=== PATIENT | female | born 1945 | race Caucasian/White ===

== ENCOUNTER 2025-03-12 19:40 | Inpatient (IN) | payer MEDICARE, OTHER, SELFPAY ==
[2025-03-12] VITALS (8 sets, daily range): BP systolic 135–181; BP diastolic 58–88; BMI 17.7; BMI 16.9
--- NOTE | 2025-03-12 16:12 | ED.GENMED ---
History of Present Illness
General
Chief Complaint: Blood Pressure Problem
Time Seen by Provider: 03/12/25 15:19
History of Present Illness
History of Present Illness:
80-year-old female with history of COPD on 3 L O2 and hypertension presenting to the emergency department for elevated blood pressure and dyspnea. Patient arrives with daughter who notes for the past month she has been having issue with her blood
pressure going up. She had previously been on metoprolol which was increased, however then saw the clinical nutritionist last week who took her off this medication. She was switched to Nebivolol, benazepril, and blood pressure was very elevated. Patient
has also been having ongoing issues with dyspnea, particularly dyspnea on exertion. Daughter notes that her oxygen will be maintained, however patient gets very anxious with ambulation. Her primary care doctor recently started her on an
antidepressant medication, however she has not initiated it yet. Denies any new cough or increased oxygen requirements. Denies fever. Denies associated chest pain. Reports that cardiology recently did an echo, within normal limits. She has seen
a director loss prevention through [place], however does not feel like she is getting answers to her issues. No additional history or symptoms reported at this time
Phy Exam
Physical Exam
Physical Exam:
General: Well-appearing, no clinical signs of dehydration, nontoxic and in no acute distress
HEENT: protecting airway
Neck: appears supple
CV: Normal heart rate, regular rhythm
Resp: No accessory muscle use, no increased work of breathing, diminished air movement bilaterally
Abd: No distention
Extremities: No deformities, no swelling
Neuro: alert, no focal neurologic deficit
: deferred
Rectal: deferred
Psych: Normal affect
Skin: Intact
Course
Orders/Labs/Results
Orders:
Orders
03/12/25 15:35
Electrocardiogram (*1) Urgent
Reason for Study: Chest Pain
EKG- Treatment ONCE
03/12/25 15:50
CR Chest - 2 Views Urgent
Comment:
Reason For Exam: sob
03/12/25 16:03
Complete Blood Count/With Diff Urgent
Comprehensive Metabolic Panel Urgent
NT-proBNP Urgent
Troponin I Urgent
Venous Blood Gas Urgent
%Oxygen/Room Air: 30
03/12/25 17:14
Ipratropium/Albuterol Sulfate [Duoneb] 3 ml INH R NOW ONE
MethylPREDNISolone PF [Solu-Medrol Pf] 125 mg IV NOW STA
Abnormal Lab Results
03/12/25
16:03
RBC 3.70 L 10^6/uL
(4.20-5.40)
Hgb 11.4 L g/dL
(12.0-16.0)
Hct 36.3 L %
(37.0-47.0)
MCHC 31.4 L g/dL
(33.0-37.0)
Absolute Monos (auto) 0.7 H 10^3/uL
(0.1-0.6)
Lymphocytes % 15.1 L %
(20.5-51.1)
VBG pCO2 74 H* mmHg
(35-48)
VBG HCO3 43.8 H mmol/L
(22-27)
Sodium 132 L mmol/L
(135-145)
Chloride 90 L mmol/L
(98-107)
Carbon Dioxide 39 H mmol/L
(22-30)
BUN 48 H mg/dl
(7-17)
Glucose 100 H mg/dl
(70-99)
03/12/25 16:03
03/12/25 16:03
Vital Signs
Initial and Last Documented VS:
Initial Vital Signs
Temp Pulse Resp BP Pulse Ox
98.2 F 83 16 160/83 97
03/12/25 14:44 03/12/25 14:44 03/12/25 14:44 03/12/25 14:44 03/12/25 14:44
Last Documented Vital Signs
Temp Pulse Resp BP Pulse Ox
98.2 F 80 22 153/75 95
03/12/25 15:33 03/12/25 17:15 03/12/25 17:15 03/12/25 17:00 03/12/25 17:15
MDM/Problems Addressed
MDM/Problems Addressed:
80-year-old female with history of COPD on 3 L and hypertension presenting for elevated blood pressure and dyspnea. Vital signs significant for high blood pressure.
On exam patient is resting comfortably, no acute distress. No increased work of breathing. Diminished air movement bilaterally, however consistent with known severe COPD. No focal abnormal lung sounds. Patient's respiratory standpoint, daughter
is mostly concerned about patient's dyspnea with exertion, which has been an ongoing issue. She suspects that there is an anxiety component to it, which they are very well may be. No signs of volume overload on exam, recent normal echo which
daughter was able to pull up on her phone from outside facility. Without concern for CHF component. Patient denies any chest pain. EKG without acute ischemic abnormality. Without present concern for ACS. Do suspect the patient symptoms are from
end-stage COPD, chronic. Patient does not appear to be in any sort of acute exacerbation of her COPD. Daughter notes history of retained CO2. Will screen with laboratory analysis and chest x-ray imaging. She is not currently on BiPAP at night,
however do feel this could be a reasonable solution going forward and consultation with her director loss prevention. Regarding her blood pressure, also ongoing issue. Recent medication adjustment 4 days ago. Blood pressure here is elevated, however without
present concern for hypertensive urgency or emergency. Will hold on adjusting any of patient's medications given recent adjustment. Will continue to monitor
17:50 - Patient's labs show hypercapnia, however suspected to be somewhat chronic. Labs relatively otherwise unremarkable. Chest x-ray shows signs of COPD, no signs of volume overload. Patient ambulated, initially did well, however then started
to hyperventilate and became hypoxic. Continue to suspect that patient symptoms are from severe COPD, acute on chronic. Will start patient on steroids and breathing treatment. Given patient's inability to ambulate without hypoxia, will admit for
COPD exacerbation with likely pulmonology consultation, possible evaluate for home CPAP use
*Pulse Oximetry
SaO2: 93
Nasal Cannula flow liters per minute: 3
Patient hypoxic: no
*EKG
Interpreted by ED Provider?: Yes
EKG Intrepretation Date: 03/12/25
EKG Intrepretation Time: 16:18
Interpretation: normal
Heart Rate: 79
Rate: normal
Rhythm: sinus
[place]: normal axis
Interval: normal interval
QRS Pattern: normal QRS
Ischemia: no ischemia
*Critical Care Note
Total Time (30-74mins, 75-104mins- exclusive of procedures): Not Applicable
ED Attending Note
-
Portions of this chart may have been created with voice recognition software.� Occasional wrong word or��sound alike� substitutions may have occurred due to the inherent limitations of voice recognition software.
Discharge Plan
Departure
Prescriptions:
No Action
budesonide 0.5 mg/2 mL Suspension For Nebulization
0.5 mg INHALATION BID
benazepril 20 mg Tablet
20 mg PO BID
ipratropium-albuterol 0.5 mg-3 mg(2.5 mg base)/3 mL Solution For Nebulization
3 ml INHALATION QID PRN (Reason: shortness of breath)
arformoterol 15 mcg/2 mL Solution For Nebulization
2 ml INHALATION BID
Yupelri 175 mcg/3 mL Solution For Nebulization
175 mcg INHALATION DAILY
Ohtuvayre 3 mg/2.5 mL Suspension For Nebulization
2.5 ml INHALATION QAM AND QPM
nebivolol 10 mg Tablet
10 mg PO DAILY
Referrals:
Rico Flannery DO [Family Provider, Family Practice]
Interventions
Interventions:
*Risk Screen - Suicide Last Done: 03/12/25 14:44
*General Assessment Last Done: 03/12/25 15:32
*Neglect/Abuse Screening Last Done: 03/12/25 14:44
*ED- Fall Risk Assessment Last Done: 03/12/25 15:32
*ED COVID-19 Vaccine History Last Done: 03/12/25 15:32
*ED Influenza Vaccine History Last Done: 03/12/25 15:32
ED- Cardiac Assessment Last Done: 03/12/25 15:35
ED- Neurological Assessment Last Done: 03/12/25 15:35
ED- Pulmonary Assessment Last Done: 03/12/25 15:35
Discharge Date and Time
Print Language: PUERTO RICAN
[2025-03-12 16:13] LABS: Venous Blood Gas B.E. 15.4 mmol/L (-4 to +4); Venous Blood Gas O2 Sat % 79.2 %
[2025-03-12 16:14] LABS: Hematocrit 36.3 % (37.0-47.0); Hemoglobin 11.4 g/dL (12.0-16.0); Mean Corp Hgb Conc. 31.4 g/dL (33.0-37.0); Mean Corpuscular Volume 98.1 fL (81.0-99.0); Nucleated Red Blood Cells % 0 %; Platelet Count 269 10^3/uL (130-400); Red Cell Dist. Width 13.0 % (11.5-14.5)
[2025-03-12 16:30] LABS: ALT (SGPT) 29 U/L (0-35); AST (SGOT) 35 U/L (14-36); Albumin 3.9 g/dl (3.5-5.0); Alkaline Phosphatase 101 U/L (38-126); Blood Urea Nitrogen 48 mg/dl (7-17); Calcium 10.0 mg/dl (8.4-10.2); Chloride 90 mmol/L (98-107); Estimated Creatinine Clearance 31 ml/min; Glucose 100 mg/dl (70-99); Potassium 5.0 mmol/L (3.5-5.1); Sodium 132 mmol/L (135-145); Total Protein 6.8 g/dl (6.3-8.2); eGFR > 60.00
[2025-03-12 16:42] LABS: Troponin I 0.024 ng/ml
[2025-03-12 17:00] LABS: Carbon Dioxide 39 mmol/L (22-30)
--- NOTE | 2025-03-12 17:17 | EDRN ---
the pt ambulated to the bathroom. With ambulation, the pt became short of breath and was noted to be hypoxic with oxygen saturation decreased to 88% while on 2-3L NC Oxygen. ER Dr Vidal was notified of above
[2025-03-12] MEDS: DUONEB 3 ML INH ×2 (17:24→21:17)
[2025-03-12] MEDS: SOLU-MEDROL PF 125 MG IV (17:30)
--- NOTE | 2025-03-12 17:53 | HPS.HSE ---
Addendum entered and electronically signed by Sherif Randall DO 03/12/25 18:52:
Patient seen and examined independently. Agree with findings and plan as set forth by SUDHAKAR Noel.
Patient is an 80y F with [facility] significant for COPD with chronic hypoxemia who presents to ED complaining of SOB and high BP. Patient reports dyspnea with exertion that has been persistent / progressive x months. She is followed by Dr. Infante at
[facility] and is in a study at this time. Patient denies any acute cough, fevers / chills, etc. Patient and family are interested in any treatments / interventions that may improve her symptoms / quality of life and are happy to exit the [facility] study if
need be.
Ass:
COPD
Chronic Hypoxemic and Hypercapnic Respiratory Failure
Benign Hypertension
Plan:
Admit for further evaluation and treatment.
IV dose of steroids given in the ED. Continue prednisone 40mg daily for now.
Continue inhaled budesonide. Duonebs TID and albuterol PRN.
Pulmonary evaluation for additional recommendations.
May benefit from NIPPV - but would likely need to discuss with / inform Pulm at [facility] for changes in her current treatment plan given study enrollment.
Continue benazepril and titrate BP meds as needed for adequate control.
Original Note:
Family Physician
-
Family Physician: Rico Flanenry
Chief Complaint
-
exertional dyspnea and hypertension
History of Present Illness
Patient is a 80-year-old female with past medical history significant for hypertension and COPD who presented to [facility] ED for evaluation of exertional dyspnea and hypertension. Patient reports that exertionally dyspnea has been present for a long
time and defines as many months. She reports hypertension has also been high for sometime and recently saw Window Installer, Dr. Luis Fu @ [facility] who made medication changes. She also, reports seeing Wildlife Veterinarian Dr. Terrance Infante @
[place] [facility] and is currently enrolled in study regarding BiPap per daughter. Denies any recent fever, chills, cough, chest pain, nausea, vomiting, constipation, diarrhea or urinary symptoms.
Medical History
Past Medical History
Past Medical History: Reports Other
Additional Past Medical History:
hypertension
COPD
macular degeneration
Past Surgical History: Reports None
Social History
Tobacco: Former Smoker (40 pack year history, quit approximately 10 years ago )
Alcohol: None
Drug: None
Personal:
Living: With Family
Employment: Retired
Family History
Family History: Other (Mother: breast cancer )
Allergies / Home Medications
Allergies reflects when Allergies were last updated in [facility].
Home Medications with original date entered in [facility]
Allergy/Medication List:
Allergies
Allergy/AdvReac Type Severity Reaction Status Date / Time
Penicillins Allergy Unknown Verified 03/12/25 15:30
Home Medications
arformoterol 15 mcg/2 mL solution for nebulization 2 ml inhalation BID 03/12/25
benazepril 20 mg tablet 20 mg PO BID 03/12/25
budesonide 0.5 mg/2 mL suspension for nebulization 0.5 mg inhalation BID 03/12/25
ensifentrine 3 mg/2.5 mL suspension for nebulization (Ohtuvayre) 2.5 ml inhalation QAM AND QPM 03/12/25
ipratropium 0.5 mg-albuterol 3 mg (2.5 mg base)/3 mL nebulization soln 3 ml inhalation QID PRN shortness of breath 03/12/25
nebivolol 10 mg tablet 10 mg PO DAILY 03/12/25
revefenacin 175 mcg/3 mL solution for nebulization (Yupelri) 175 mcg inhalation DAILY 03/12/25
Review of Systems
-
History Source: Patient
Constitutional: Denies Fever or Chills
EENT: Denies Sore Throat
Respiratory: Reports Trouble Breathing (exertional dyspnea ); Denies Cough or Hemoptysis
Cardiac: Denies Chest Pain, Diaphoresis, Palpitations or Syncope
Abdomen/GI: Denies Abdominal Pain, Nausea, Vomiting or Diarrhea
: Denies Dysuria, Frequency or Urgency
Musculoskeletal: Denies Joint Pain
Skin: Denies Rash
Neurological: Denies Dizzy, Headache, Weakness or Numbness
Endocrine: Denies Polyuria
Physical Exam
Vital Signs
Vital Signs
Temp Pulse Resp BP Pulse Ox
98.2 F 80 22 153/75 95
03/12/25 15:33 03/12/25 17:15 03/12/25 17:15 03/12/25 17:00 03/12/25 17:15
Physical Exam
General: Well Developed, Well Nourished, No Apparent Distress, Comfortable, Conversant and Appears Chronically Ill
HEENT: NormoCephalic, Moist mucous membranes, PERRLA, Nose Appears Normal and Ears Appear Normal
Respiratory: Clear, Non Labored Respirations and Decreased Breath Sounds; No Wheezes, Rales or Rhonchi
Cardiac: Regular Rhythm; No Murmur, Rub, Gallop or Peripheral Edema
GI: Soft, Non Tender, Non Distended and Normal Bowel Sounds
Musculoskeletal: No Clubbing, No Cyanosis and No Edema
Skin: Warm and IV/Catheter Site
Neuro: Awake and AO x 3
Psych: Calm and Intact Judgment/Insight
Laboratory Results
-
03/12/25 16:03
03/12/25 16:03
Laboratory Results
Total Bilirubin 0.2 mg/dl (0.2-1.3) 03/12/25 16:03
AST 35 U/L (14-36) 03/12/25 16:03
ALT 29 U/L (0-35) 03/12/25 16:03
Alkaline Phosphatase 101 U/L (38-126) 03/12/25 16:03
Troponin I 0.024 ng/ml 03/12/25 16:03
Data Reviewed
-
Lab Data: Labs Reviewed by me (VBG pCO2 74, Na+ 132, CO2 39, BUN 48)
Impression/Plan
-
IMPRESSION/PLAN:
#COPD exacerbation
c/o exertional dyspnea for months
VBG pCO2 74, Na+ 132, CO2 39, BUN 48
EKG: NORMAL SINUS RHYTHM
CXR: No acute disease of the chest.
Probable T12 mild compression fracture.
Findings suggesting severe COPD.
Severe atherosclerotic vascular disease.
- Admit to med/surg
- Consult Pulmonary
- Prednisone 40mg daily
- DuoNeb TID and Albuterol PRN
- continue budesonide
#hypertension
- continue benazepril and nebivolol
Code status: full code
DVT prophylaxis: lovenox sq
[2025-03-12] MEDS: PULMICORT 0.5 MG INH (21:17)
[2025-03-13 07:16] VITALS: BP 131/73
[2025-03-13] MEDS: PULMICORT 0.5 MG INH ×2 (07:28→20:10)
[2025-03-13] MEDS: DUONEB 3 ML INH ×3 (07:28→20:10)
[2025-03-13 08:04] LABS: Hematocrit 35.8 % (37.0-47.0); Hemoglobin 11.4 g/dL (12.0-16.0); Mean Corp Hgb Conc. 31.8 g/dL (33.0-37.0); Mean Corpuscular Volume 95.0 fL (81.0-99.0); Nucleated Red Blood Cells % 0 %; Platelet Count 268 10^3/uL (130-400); Red Cell Dist. Width 13.1 % (11.5-14.5)
[2025-03-13] MEDS: LOPRESSOR 50 MG PO ×2 (08:29→20:38)
[2025-03-13] MEDS: DELTASONE 40 MG PO (08:29)
[2025-03-13] MEDS: ZESTRIL 20 MG PO (08:30)
[2025-03-13 08:36] LABS: Blood Urea Nitrogen 39 mg/dl (7-17); Calcium 9.6 mg/dl (8.4-10.2); Carbon Dioxide 36 mmol/L (22-30); Chloride 96 mmol/L (98-107); Estimated Creatinine Clearance 29 ml/min; Glucose 124 mg/dl (70-99); Potassium 5.3 mmol/L (3.5-5.1); Sodium 135 mmol/L (135-145); eGFR > 60.00
--- NOTE | 2025-03-13 09:18 | CON.PUL ---
Consultation
Consultation Request
Date/Time Consultation Requested: 03/13/2025-8 AM
Date/Time Consultation Performed: 03/13/2025-11:30 AM
Requesting Provider: hospitalist
Performing Provider: Dr. Nix
Reason for Consultation: Shortness of breath
Medical History
-
Chief Complaint: Shortness of breath
History of Present Illness:
80-year-old former smoking female with underlying COPD, hypertension, macular degeneration presented to the emergency room with increasing shortness of breath and felt to have COPD exacerbation-pulmonary consulted for shortness of breath/COPD
exacerbation 03/13/2025. The patient feels improved since she came here. She denies any chest pain, chest tightness, chest congestion, productive cough, abdominal pain or leg swelling.
Past Medical History
Past Medical History: None (COPD on chronic 3 L of oxygen and nebulizers-followed Dr. Infante at [facility]-on protocol/BiPAP study. Hypertension. Macular degeneration.)
Social History
Tobacco: Former Smoker ([id number] quit 10 years ago)
Alcohol: None
Drug: None
Personal:
Living: With Family
Occupational Exposures: No known asbestos exposure
Environmental Exposures: No known tuberculosis exposure
Family History
Family History: Reviewed & Not Pertinent
Allergies / Home Medications
Allergies
Allergy/AdvReac Type Severity Reaction Status Date / Time
Penicillins Allergy Unknown Verified 03/12/25 15:30
Home Medications
�Medication �Instructions �Recorded �Confirmed �Last Taken �Type
arformoterol 15 mcg/2 mL solution 2 ml inhalation BID copd 03/12/25 03/12/25 03/12/25 History
for nebulization
benazepril 20 mg tablet 20 mg PO BID Blood Pressure 03/12/25 03/12/25 03/12/25 History
budesonide 0.5 mg/2 mL suspension 0.5 mg inhalation BID 03/12/25 03/12/25 03/12/25 History
for nebulization Lung/Breathing Issues
ensifentrine 3 mg/2.5 mL 2.5 ml inhalation QAM AND QPM COPD 03/12/25 03/12/25 03/12/25 History
suspension for nebulization
(Ohtuvayre)
ipratropium 0.5 mg-albuterol 3 mg 3 ml inhalation QID PRN shortness 03/12/25 03/12/25 03/12/25 History
(2.5 mg base)/3 mL nebulization of breath
soln
nebivolol 10 mg tablet (Bystolic) 10 mg PO BID AT 0800,1700 Blood 03/12/25 03/12/25 03/12/25 08:00 History
Pressure
revefenacin 175 mcg/3 mL solution 175 mcg inhalation DAILY COPD 03/12/25 03/12/25 03/11/25 History
for nebulization (Yupelri)
Review of Systems
-
Unable to Obtain full review of systems at this time due to: Other ( per HPI)
Vitals / Labs / Diagnostic Testing
Vital Signs
Temp Pulse Resp BP Pulse Ox
98 F 70 14 131/73 95
03/13/25 07:16 03/13/25 08:30 03/13/25 07:34 03/13/25 08:30 03/13/25 07:34
Lab Data
03/13/25 07:26
03/13/25 07:26
Diagnostic Testing:
Physical Exam
-
Exam:
Well-nourished and well-developed in no apparent distress
HEENT-atraumatic, normocephalic
Neck-supple, no JVD, no bruit
Heart-regular rate and rhythm-no murmurs, rubs or gallops
Chest with diminished breath sounds, prolonged expiratory time, no wheezes or crackles
Back-no tenderness
Abdomen-soft, nontender, nondistended, no hepatosplenomegaly
Extremities-no cyanosis, clubbing, trace lower extremity edema
Integument-intact, no rashes, lesions or ecchymosis
Neurology-alert and oriented, nonfocal motor and sensory exam
Assessment
-
80-year-old former smoking female with underlying COPD, hypertension, macular degeneration presented to the emergency room with increasing shortness of breath and felt to have COPD exacerbation-pulmonary consulted for shortness of breath/COPD
exacerbation 03/13/2025.
COPD exacerbation
Mild [id number] 11.4
Mild hyperglycemia
Conditions present prior to admission:
COPD on chronic 3 L of oxygen and nebulizers-followed Dr. Infante at [facility]-on protocol/BiPAP study.
Hypertension.
Macular degeneration.
Plan
Respiratory decompensation likely due to a COPD exacerbation without clear infectious prodrome
Supplemental oxygen-attempt to wean-patient on 3 L at home
Aspiration precautions
Nebulizers
Prednisone 40 mg with taper
No signs of infection
Observe off antibiotics
Monitor blood sugar
Insulin supplementation as needed
DVT prophylaxis-on Lovenox
Nutrition
Early mobilization
Outpatient follow-up with Dr. Infante and if she wishes locally as well-Will leave information and discharge paperwork
Diagnostic data:
Chest x-ray 03/12/2025-NAD, COPD changes, T12 mild compression fracture
Data Reviewed
-
EKG: Report reviewed by me
Radiology: Report reviewed by me
Medical Tests (Nuc Med, Echo etc): Report reviewed by me
Labs: Labs reviewed by me
Old Records: Reviewed
Total Time Spent with Patient (in minutes): 55
--- NOTE | 2025-03-13 16:02 | CM ---
Addendum entered by Halie Girard 03/13/25 16:08:
IA completed. IMM reviewed with pt and placed on chart. Pt lives with her in a 2 story house with 2 steps at the entrance. There are 13 steps to the 2nd floor.with a full BR on the first floor. NO hx of SNF. No insecurities identified.
Confirmed PCP, Rx, insurance
No hx of home care but pt is willing to accept this service. She will need a VN consult to case management.
Needs assistance bathing and dressing. This currently being done by her dtr.
Using 3 lpm n/c. Has a concentrator at home, and a portable tank. Stated she has been using the nebulizer 10x/day at home without improvement in her breathing. O2 DME company is [employer].
A rolling walker has been purchased and is at her home now. Use a wheelchaire outside of the home.
PCP: Rico Flannery
Rx: [facility]
Discharged for today has be cx per Dr. Newby
Plan: DC to home with VN(once CM referral is received)
Original Note:
Discharge order placed for this patient. Pt became very upset and said she does not feel well enough to go home yet. I reviewed the IMM with her. I spoke to her dtr who is equally upset, and crying and wants to speak to Dr. Newby about the pulmonary
consult. TT dr. Newby. RN made aware.
Plan: Pending Dr. Newby's review of pt's current complaint.
--- NOTE | 2025-03-13 16:15 | PTCARENOTE ---
Patient dyspneic and tachypneic when ambulating 10 feet to bathroom or just pushing herself up in bed. 3L NC 84% with exertion, RR 26-30. Patient recovers after 5 minutes, 3L 93%. Patient states, 'This is new for me. My breathing is getting worse.'
[2025-03-13 16:44] VITALS: BMI 16.9
--- NOTE | 2025-03-13 17:08 | W.PN.HOSP.TC ---
Today's Communication/Plan
-
Prednisone
BiPAP
Assessment / Plan
Assessment / Plan
80F with COPD on chronic home O2, HTN, P/W dyspnea, found to have worsening hypoxia with ambulation.
COPD exacerbation
Appears to have progressive worsening of her COPD
In ED apparently found to have hypoxia when she ambulated
Continue home O2, check ambulatory pulse ox
Consulted pulmonology, starting BiPAP tonight
Received IV steroids in the ED, continued 40 mg prednisone daily.
Continue nebs
Outpatient will be evaluated for advanced therapies
HTN
BP controlled, continue ACEIi and BB
Anxiety
Patient has been prescribed on buspirone as outpatient, has not started the medicine yet, daughter reports that division roadmaster is okay with her starting it. Per their home prescription she is to do 5 mg daily for 5 days, then increase to 5 mg twice
daily.
Start buspirone
As needed Xanax for panic attacks while here inpatient
DVT PPx
Lovenox
Anticipated Discharge: 24 - 48 hours
Subjective/Interval History
-
Date of Service: March 13, 2025
Patient reports gets short of breath when she walks. Called daughter twice to discuss plan of care, she is concerned about patient's ambulatory hypoxia, as well as progression of her COPD, reports that she does not respond to steroids. Also that
she develops anxiety that seems to contribute to her shortness of breath, she asks about Xanax, also notes that patient supposed to be on buspirone. Initially had plan to discharge patient today, however concerned that she has not yet had
improvement. Discussed case with Dr. Ponce as well, he can continue to follow her as outpatient as well, he will start BiPAP tonight.
Objective Data
-
Labs:
Laboratory Results
03/13/25
07:26
WBC 7.6
Hgb 11.4 L
Hct 35.8 L
Plt Count 268
Sodium 135
Potassium 5.3 H
Chloride 96 L
Carbon Dioxide 36 H
BUN 39 H
Creatinine 0.9
Glucose 124 H
Calcium 9.6
Vital Signs:
Vital Signs
Temp Pulse Resp BP Pulse Ox
97.9 F 82 14 131/73 98
03/13/25 15:13 03/13/25 15:13 03/13/25 15:13 03/13/25 08:30 03/13/25 15:13
I&O
03/12/25 03/13/25 03/14/25
06:59 06:59 06:59
Intake Total 280 / 280
Output Total 300 / 300
Balance -20 / -20
Review of Systems
-
All other systems: Reviewed and negative
Physical Exam
-
General: Comfortable and Cachectic
HEENT: Moist Mucous Membranes, Anicteric and PERRLA
Respiratory: Clear to Auscultation and Decreased Breath Sounds; Negative Wheezes, Rales or Rhonchi
Cardiac: Regular Rhythm and S1/S2; Negative Murmur, Rub or Gallop
GI: Soft, Nontender, Nondistended and Normal Bowel Sounds
Musculoskeletal: No Edema
Skin: Warm and Dry; Negative Rash, Ulcers or Lesions
Neuro: Awake and AO x 3
Hematologic / Lymphatic: No Lymphadenopathy
Psych: Calm
Data Reviewed
-
Diagnostic Radiology: Report Reviewed by me, Discussed with Physician, Discussed with Patient and Discussed with Family
Labs: Labs Reviewed by me, Discussed with Physician, Discussed with Patient and Discussed with Family
[2025-03-13] MEDS: LOVENOX 40 MG SC (18:00)
[2025-03-13] MEDS: PREVNAR 20 0.5 ML IM (18:04)
[2025-03-13] MEDS: XANAX 0.25 MG PO (20:40)
[2025-03-13 23:24] VITALS: BP 145/70
[2025-03-14 07:00] VITALS: BP 152/78
[2025-03-14] MEDS: PULMICORT 0.5 MG INH ×2 (07:47→19:49)
[2025-03-14] MEDS: DUONEB 3 ML INH ×3 (07:47→19:49)
--- NOTE | 2025-03-14 08:48 | W.PN.HOSP.TC ---
Today's Communication/Plan
-
Continue prednisone
Adjust BiPAP/mask for comfort
Assessment / Plan
Assessment / Plan
80F with COPD on chronic home O2, HTN, P/W dyspnea, found to have worsening hypoxia with ambulation.
COPD exacerbation
Appears to have progressive worsening of her COPD
In ED apparently found to have hypoxia when she ambulated
Continue home O2 3L, checked ambulatory pulse ox, 88% on RA at rest, 93% ambulating with 3 L
Consulted pulmonology, started BiPAP, only wore it for 2 minutes, adjust for comfort, if possible change to smaller mask
Received IV steroids in the ED, continued 40 mg prednisone daily.
Continue nebs
Outpatient will be evaluated for advanced therapies
HTN
BP controlled, continue ACEi and BB
Anxiety
Patient has been prescribed on buspirone as outpatient, has not started the medicine yet, daughter reports that cyber security analyst is okay with her starting it. Per their home prescription she is to do 5 mg daily for 5 days, then increase to 5 mg twice
daily.
Start buspirone
As needed Xanax for panic attacks while here inpatient, she took 1 but it did not help, will discontinue
DVT PPx
Lovenox
Anticipated Discharge: 24 - 48 hours
Subjective/Interval History
-
Date of Service: March 14, 2025
Patient still feeling dyspneic on exertion, notes she was unable to tolerate BiPAP last night because the mask was too big and the air was blowing into her eyes
Objective Data
-
Labs:
Laboratory Results
03/13/25
07:26
WBC 7.6
Hgb 11.4 L
Hct 35.8 L
Plt Count 268
Sodium 135
Potassium 5.3 H
Chloride 96 L
Carbon Dioxide 36 H
BUN 39 H
Creatinine 0.9
Glucose 124 H
Calcium 9.6
Vital Signs:
Vital Signs
Temp Pulse Resp BP Pulse Ox
98.1 F 78 18 152/78 97
03/14/25 07:00 03/14/25 07:50 03/14/25 07:50 03/14/25 07:00 03/14/25 07:50
I&O
03/13/25 03/14/25 03/15/25
06:59 06:59 06:59
Intake Total 280 / 280 1583 / 1583
Output Total 300 / 300 350 / 350
Balance -20 / -20 1233 / 1233
Review of Systems
-
All other systems: Reviewed and negative
Physical Exam
-
General: Comfortable and Cachectic
HEENT: Moist Mucous Membranes, Anicteric and PERRLA
Respiratory: Clear to Auscultation and Decreased Breath Sounds; Negative Wheezes, Rales or Rhonchi
Cardiac: Regular Rhythm and S1/S2; Negative Murmur, Rub or Gallop
GI: Soft, Nontender, Nondistended and Normal Bowel Sounds
Musculoskeletal: No Edema
Skin: Warm and Dry; Negative Rash, Ulcers or Lesions
Neuro: Awake and AO x 3
Hematologic / Lymphatic: No Lymphadenopathy
Psych: Calm
Data Reviewed
-
Diagnostic Radiology: Report Reviewed by me, Discussed with Physician, Discussed with Patient and Discussed with Family
Labs: Labs Reviewed by me, Discussed with Physician, Discussed with Patient and Discussed with Family
[2025-03-14] MEDS: BUSPAR 5 MG PO (08:51)
[2025-03-14] MEDS: DELTASONE 40 MG PO (08:51)
[2025-03-14] MEDS: ZESTRIL 20 MG PO (08:51)
[2025-03-14] MEDS: LOPRESSOR 50 MG PO ×2 (08:51→20:38)
--- NOTE | 2025-03-14 10:14 | CM ---
Addendum entered by Enriqueta Coppola 03/14/25 14:51:
Dr. Goodman spoke with patient and daughter; pt currently on O2 via HI; and will pursue outpatient initiation of BIPAP with Dr. Infante at [facility].
Patient to be discharged to home today. Pt's receives services through [facility] and a referral was sent to [facility] for patient to have services as well.
IMM reviewed and signed; copy placed in patient's chart.
[facility]
Original Note:
CM spoke with pt's daughter regarding discharge to home today. Daughter is concerned that patient was to be on bi-pap, however the mask was too big and patient is still having difficulty breathing. CM contacted the respiratory therapist, Octavia
Bing, who advised the smallest mask available was used, and suggested contacting the [employer] company who should have more sizes available. Respiratory Therapist was able to confirm that patient was given an Adult Small mask.
[2025-03-14 11:00] VITALS: BP 106/56
--- NOTE | 2025-03-14 12:59 | W.PN.PUL3 ---
Today's Communication / Plan
-
- Azithromycin 500 mg dailyf or 3 days
- Discharge planning
- BIPAP as needed, currently comfortable on nasal canula.
- Out patient follow up with Dr. Infante at [facility]. She can benefit from nightly initiation of BIPAP therapy, can be pursued as out patient.
Assessment
-
80-year-old former smoking female with underlying COPD, hypertension, macular degeneration presented to the emergency room with increasing shortness of breath and felt to have COPD exacerbation-pulmonary consulted for shortness of breath/COPD
exacerbation 03/13/2025.
Acute COPD exacerbation
Chronic hypoxic and hypercapnic respiratory failure, baseline on 3 L O2
Chronic compensated hypercapnia
Mild gjcybe-zavidagwod-eiqfvivmfr 11.4
Mild hyperglycemia
Conditions present prior to admission:
COPD on chronic 3 L of oxygen and nebulizers-followed Dr. Infante at [place]-on protocol/BiPAP study.
Hypertension.
Macular degeneration.
Plan
Respiratory decompensation likely due to a COPD exacerbation without clear infectious prodrome
Supplemental oxygen-attempt to wean-patient on 3 L at home
Aspiration precautions
Nebulizers
Prednisone 40 mg with taper
No infiltrates noted
Add 3 days of Azithromycin 500 mg nightly
Currently comfortable on room air, not needing BIPAP support. Compensated hypercapnia on VBG.
Monitor blood sugar
Insulin supplementation as needed
DVT prophylaxis-on Lovenox
Nutrition
Early mobilization
Outpatient follow-up with Dr. Infante and if she wishes locally as well-Will leave information and discharge paperwork
Diagnostic data:
Chest x-ray 03/12/2025-NAD, COPD changes, T12 mild compression fracture
Subjective Data
-
Date of Service:
Date of Service: March 14, 2025
Subjective:
Comfortably lying in bed, in no acute distress.
Review of Systems
Genitourinary: Other (No new symptoms reported. )
Objective Data
Data Reviewed
Vital Signs / I&O / Oxygen:
Vital Signs
Temp Pulse Resp BP Pulse Ox
98.2 F 66 20 106/56 96
03/14/25 11:00 03/14/25 11:00 03/14/25 11:00 03/14/25 11:00 03/14/25 11:00
Intake and Output
03/13/25 03/14/25 03/15/25
06:59 06:59 06:59
Intake Total 280 / 280 1583 / 1583
Output Total 300 / 300 350 / 350
Balance -20 / -20 1233 / 1233
SaO2 96
Nasal Cannula flow liters per 3
minute
Physical Exam
General: Comfortable
HEENT: Normocephalic
Cardiovascular: S1-S2
Respiratory: Clear and Other (Expiration prolonged, no wheezing )
GI: Soft
Neurology: Awake and Alert
Skin: Warm
Labs/Micro/Reports
Lab Data
03/13/25 07:26
03/13/25 07:26
[2025-03-14] MEDS: ZITHROMAX 500 MG PO (13:42)
[2025-03-14 14:53] VITALS: BP 148/79
[2025-03-14] MEDS: LOVENOX 40 MG SC (16:52)
[2025-03-14 19:52] VITALS: BP 157/70
[2025-03-14 23:30] VITALS: PULSE 2
[2025-03-14 23:43] VITALS: BP 149/78
[2025-03-15] VITALS (8 sets, daily range): BP systolic 142–165; BP diastolic 72–88; PULSE 2
[2025-03-15] MEDS: DUONEB 3 ML INH ×3 (07:32→19:51)
[2025-03-15] MEDS: PULMICORT 0.5 MG INH ×2 (07:32→19:51)
--- NOTE | 2025-03-15 08:23 | W.PN.HOSP.TC ---
Addendum entered and electronically signed by Adriane Newby MD 03/15/25 15:38:
Ana Davison requires noninvasive volume ventilation with a target tidal volume due to acute on chronic respiratory failure caused by COPD. Patient requires auto EPAP to prevent her airway from collapsing and battery backup in case of power
outages which exceeds the capability of a RAD. Patient is currently on NIV and will continue NIV therapy at home. Without NIV therapy, patient is at risk of elevated PaCO2 levels post discharge.
Original Note:
Today's Communication/Plan
-
Continue prednisone
Tolerated BiPAP
Discharge home with home BiPAP tomorrow
Assessment / Plan
Assessment / Plan
80F with COPD on chronic home O2, HTN, P/W dyspnea, found to have worsening hypoxia with ambulation.
COPD progression
Appears to have progressive worsening of her COPD
In ED apparently found to have hypoxia when she ambulated
Continue home O2 3L, checked ambulatory pulse ox, 88% on RA at rest, 93% ambulating with 3 L
Consulted pulmonology, started BiPAP, was able to tolerate last night. CM consult for home BiPAP.
Received IV steroids in the ED, continued prednisone daily, dosing adjustments per pulmonary.
Continue nebs
Outpatient will be evaluated for advanced therapies, will follow-up with local pulm
HTN
BP controlled, continue ACEi and BB
Anxiety
Patient has been prescribed on buspirone as outpatient, has not started the medicine yet, daughter reports that load manager is okay with her starting it. Per their home prescription she is to do 5 mg daily for 5 days, then increase to 5 mg twice
daily.
Start buspirone
As needed Xanax for panic attacks while here inpatient, she took 1 but it did not help, will discontinue
DVT PPx
Lovenox
Anticipated Discharge: Within 24 hours
Subjective/Interval History
-
Date of Service: March 15, 2025
Patient wore BiPAP overnight and feels some improvement with that.
Objective Data
-
Labs:
Laboratory Results
03/13/25
07:26
WBC 7.6
Hgb 11.4 L
Hct 35.8 L
Plt Count 268
Sodium 135
Potassium 5.3 H
Chloride 96 L
Carbon Dioxide 36 H
BUN 39 H
Creatinine 0.9
Glucose 124 H
Calcium 9.6
Vital Signs:
Vital Signs
Temp Pulse Resp BP Pulse Ox
98.7 F 78 16 165/82 99
03/15/25 07:00 03/15/25 07:34 03/15/25 07:34 03/15/25 07:00 03/15/25 07:34
I&O
03/14/25 03/15/25 03/16/25
06:59 06:59 06:59
Intake Total 1583 / 1583 660 / 660
Output Total 350 / 350
Balance 1233 / 1233 660 / 660
Review of Systems
-
All other systems: Reviewed and negative
Physical Exam
-
General: Comfortable and Cachectic
HEENT: Moist Mucous Membranes, Anicteric and PERRLA
Respiratory: Clear to Auscultation and Decreased Breath Sounds; Negative Wheezes, Rales or Rhonchi
Cardiac: Regular Rhythm and S1/S2; Negative Murmur, Rub or Gallop
GI: Soft, Nontender, Nondistended and Normal Bowel Sounds
Musculoskeletal: No Edema
Skin: Warm and Dry; Negative Rash, Ulcers or Lesions
Neuro: Awake and AO x 3
Hematologic / Lymphatic: No Lymphadenopathy
Psych: Calm
Data Reviewed
-
Diagnostic Radiology: Report Reviewed by me, Discussed with Physician, Discussed with Patient and Discussed with Family
Labs: Labs Reviewed by me, Discussed with Physician, Discussed with Patient and Discussed with Family
[2025-03-15] MEDS: ZITHROMAX 500 MG PO (09:23)
[2025-03-15] MEDS: LOPRESSOR 50 MG PO ×2 (09:24→20:17)
[2025-03-15] MEDS: FLUSH (NSS) 1 FLUSH IV (09:25)
[2025-03-15] MEDS: BUSPAR 5 MG PO (09:25)
[2025-03-15] MEDS: DELTASONE 40 MG PO (09:25)
[2025-03-15] MEDS: ZESTRIL 20 MG PO (09:25)
--- NOTE | 2025-03-15 11:31 | CM ---
Patient seen at bedside
spoke with daughter Leslie
tt from Dr. Goodman patient will need BIPAP at home
daughter ok with [employer]-CM called [employer] ([phone])
faxed face sheet, h&p, blood gas, progress notes
[facility] states they have to obtain authorization tomorrow
she will email CM additional info to be sent to [facility] states RT can go to patient home on Sunday
Discussed with daughter Leslie
Daughter also states wants [facility] not [facility] as patient is opened with [facility]
referral in [facility] for [facility] - CM left message for [facility] liaison
PLAN: home, with [facility], CM in process coordinating of BIPAP at home
--- NOTE | 2025-03-15 14:49 | W.PN.PUL3 ---
Today's Communication / Plan
-
- Lower prednisone to 30 mg daily
- Continue scheduled DuoNeb and budesonide. Resume patient's home nebulizers at discharge
- manager practice service consulted to help with nightly BiPAP initiation post discharge, tolerated 03/27 well with extra small mask
- Discharge planning
Assessment
-
80-year-old former smoking female with underlying COPD, hypertension, macular degeneration presented to the emergency room with increasing shortness of breath and felt to have COPD exacerbation-pulmonary consulted for shortness of breath/COPD
exacerbation 03/13/2025.
Acute COPD exacerbation
Chronic hypoxic and hypercapnic respiratory failure, baseline on 3 L O2
Chronic compensated hypercapnia ()
Mild mcgtkm-atxmbpnaov-oglqkemaez 11.4
Mild hyperglycemia
Pulmonary cachexia
Conditions present prior to admission:
COPD on chronic 3 L of oxygen and nebulizers-followed Dr. Infante at [place]-on protocol/BiPAP study.
Hypertension.
Macular degeneration.
Plan
Respiratory decompensation likely due to a mild COPD exacerbation without clear infectious prodrome
Most of her exertional dyspnea is due to end stage severe COPD. Patient follows up with Dr. Infante at [place], at baseline has been on a formoterol nebulizer along with budesonide, DuoNeb, Ohtuvayre and Yupleri. Essentially maximum medical
management. In view of chronic compensated hypercapnia, patient might benefit from nightly BiPAP initiation. Discussed with patient and her daughter, updated them regarding fairly advanced underlying obstructive disease with cachexia which I
suspect is pulmonary cachexia due to advanced COPD.
Spirometry 03/15, FEV1 20% (0.34L), FVC 55%, FEV1/FVC 29. Severe obstructive airway disease with possibly concomitant restriction with decreased FVC.
Supplemental oxygen-attempt to wean-patient on 3 L at home
Aspiration precautions
Nebulizers
Lowered prednisone to 30 mg daily
No infiltrates noted
Add 3 days of Azithromycin 500 mg nightly
Patient reports feeling better with use of BiPAP at night
Monitor blood sugar
Insulin supplementation as needed
DVT prophylaxis-on Lovenox
Nutrition
Early mobilization
Outpatient follow-up with Dr. Infante and if she wishes locally as well-Will leave information and discharge paperwork
Diagnostic data:
Chest x-ray 03/12/2025-NAD, COPD changes, T12 mild compression fracture
Subjective Data
-
Date of Service:
Date of Service: March 15, 2025
Subjective:
Comfortably lying in bed, reports feeling better after nightly BiPAP use.
Review of Systems
Genitourinary: Other (All 14 systems reviewed and negative except as stated above in the history of present illness.)
Objective Data
Data Reviewed
Vital Signs / I&O / Oxygen:
Vital Signs
Temp Pulse Resp BP Pulse Ox
98.7 F 82 24 158/80 96
03/15/25 07:00 03/15/25 12:15 03/15/25 11:15 03/15/25 12:15 03/15/25 11:15
Intake and Output
03/14/25 03/15/25 03/16/25
06:59 06:59 06:59
Intake Total 1583 / 1583 660 / 660 540 / 540
Output Total 350 / 350
Balance 1233 / 1233 660 / 660 540 / 540
SaO2 96
Nasal Cannula flow liters per 3
minute
Physical Exam
General: Comfortable and Other (Cachectic appearing)
HEENT: Normocephalic
Cardiovascular: S1-S2
Respiratory: Clear and Other (Expiration prolonged, no wheezing )
GI: Soft
Neurology: Awake and Alert
Skin: Warm
Labs/Micro/Reports
Lab Data
03/13/25 07:26
03/13/25 07:26
--- NOTE | 2025-03-15 16:00 | PTCARENOTE ---
Pt's SBP today has been 150s-160s, pt asymptomatic. Pt's daughter concerned that it is too high. Made Dr. Newby aware of daughter's concern. Dr. Newby indicated that she will look at pt's meds, will monitor.
[2025-03-15] MEDS: LOVENOX 40 MG SC (17:59)
[2025-03-16 03:30] VITALS: PULSE 2
[2025-03-16 07:00] VITALS: BP 198/94
[2025-03-16] MEDS: ZITHROMAX 500 MG PO (08:23)
[2025-03-16] MEDS: BUSPAR 5 MG PO (08:23)
[2025-03-16] MEDS: ZESTRIL 20 MG PO (08:24)
[2025-03-16] MEDS: DELTASONE 30 MG PO (08:24)
[2025-03-16] MEDS: LOPRESSOR 50 MG PO ×2 (08:24→20:28)
[2025-03-16] MEDS: PULMICORT 0.5 MG INH ×2 (08:41→19:39)
[2025-03-16] MEDS: DUONEB 3 ML INH ×3 (08:41→19:38)
--- NOTE | 2025-03-16 10:27 | W.PN.PUL3 ---
Today's Communication / Plan
-
Remains on baseline O2 requirements, prednisone taper
SOB with minimal exertion, not OOB--will obtain IS for bedside exercises
BIPAP set up per team
Discharge planning otherwise, FU OP with Dr Infante at [place]
Assessment
-
80-year-old former smoking female with underlying COPD, hypertension, macular degeneration presented to the emergency room with increasing shortness of breath and felt to have COPD exacerbation-pulmonary consulted for shortness of breath/COPD
exacerbation 03/13/2025.
Acute COPD exacerbation
Chronic hypoxic and hypercapnic respiratory failure, baseline on 3 L O2
Chronic compensated hypercapnia ()
Mild sobtnv-zzlwcryweg-ongjflkrbu 11.4
Mild hyperglycemia
Pulmonary cachexia
Conditions present prior to admission:
COPD on chronic 3 L of oxygen and nebulizers-followed Dr. Infante at [place]-on protocol/BiPAP study.
Hypertension.
Macular degeneration.
Plan
Respiratory decompensation likely due to a mild COPD exacerbation without clear infectious prodrome
Most of her exertional dyspnea is due to end stage severe COPD.
Patient follows up with Dr. Infante at [place], at baseline has been on a formoterol nebulizer along with budesonide, DuoNeb, Ohtuvayre and Yupleri.
Essentially maximum medical management.
In view of chronic compensated hypercapnia, patient might benefit from nightly BiPAP initiation.
Discussed with patient and her daughter, updated them regarding fairly advanced underlying obstructive disease with cachexia which I suspect is pulmonary cachexia due to advanced COPD.
Spirometry 03/15, FEV1 20% (0.34L), FVC 55%, FEV1/FVC 29. Severe obstructive airway disease with possibly concomitant restriction with decreased FVC.
Supplemental oxygen-on baseline-patient on 3 L at home
Aspiration precautions
Nebulizers
Lowered prednisone to 30 mg daily
No infiltrates noted
Add 3 days of Azithromycin 500 mg nightly
Patient reports feeling better with use of BiPAP at night
Monitor blood sugar
Insulin supplementation as needed
DVT prophylaxis-on Lovenox
Nutrition
Early mobilization
Outpatient follow-up with Dr. Infante and if she wishes locally as well-Will leave information and discharge paperwork
Discharge planning per team/awaiting home BIPAP set up
Diagnostic data:
Chest x-ray 03/12/2025-NAD, COPD changes, T12 mild compression fracture
Total time spent on this consultation/encounter __40__ minutes which includes review of history, physical exam, medications, laboratory data, personal review of imaging, extensive review of outpatient records, discussion with care team and
respiratory therapy.
Subjective Data
-
Date of Service:
Date of Service: March 16, 2025
Chief Complaint: Pulmonary Follow Up
Subjective:
Still SOB, not ambulating
No new complaints
Objective Data
Data Reviewed
Vital Signs / I&O / Oxygen:
Vital Signs
Temp Pulse Resp BP Pulse Ox
97.6 F 86 16 148/75 97
03/16/25 07:00 03/16/25 08:44 03/16/25 08:44 03/16/25 08:24 03/16/25 08:44
Intake and Output
03/15/25 03/16/25 03/17/25
06:59 06:59 06:59
Intake Total 660 / 660 900 / 900
Balance 660 / 660 900 / 900
SaO2 97
Nasal Cannula flow liters per 3
minute
Physical Exam
General: Comfortable and Other (Cachectic appearing)
HEENT: Normocephalic, Anicteric and Moist Mucous Membranes
Cardiovascular: S1-S2 and Regular Rhythm
Respiratory: Clear, Non-Labored Respirations and Other (Expiration prolonged, no wheezing )
GI: Soft, Non Distended and Non Tender
Neurology: Awake, Alert, Oriented and No Motor Deficits
Skin: Warm and Dry
Labs/Micro/Reports
Lab Data
03/13/25 07:26
03/13/25 07:26
--- NOTE | 2025-03-16 10:43 | CM ---
Addendum entered by Halie Girard 03/16/25 11:26:
IMM given and placed on chart
Addendum entered by Halie Girard 03/16/25 10:49:
Spoke with [facility] ([phone]) and informed her that pt is petite and may need a very small mask. She state she would notify the RT who is scheduled to see the patient tomorrow.
Original Note:
Met with dtr and pt bedside. Dtr is anticipating DC tomorrow.RT is ready to start on Sunday as well. Reassured pt and dtr that BiPap was included with respiratory order.
Plan: Possible Discharge to home tomorrow with nasal O2
--- NOTE | 2025-03-16 13:18 | W.PN.HOSP.TC ---
Today's Communication/Plan
-
expect discharge tomorrow once BiPAP set up
Assessment / Plan
Assessment / Plan
80F with COPD on chronic home O2, HTN, P/W dyspnea, found to have worsening hypoxia with ambulation.
COPD progression
Appears to have progressive worsening of her COPD
In ED apparently found to have hypoxia when she ambulated
Continue home O2 3L, checked ambulatory pulse ox, 88% on RA at rest, 93% ambulating with 3 L
Consulted pulmonology, started BiPAP, was able to tolerate last night. CM consult for home BiPAP - should be ready for tomorrow
continue prednisone taper
Continue nebs
Outpatient will be evaluated for advanced therapies, will follow-up with local pulm
plan for discharge tomorrow once BiPAP set up
HTN
BP controlled, continue ACEi and BB
Anxiety
Patient has been prescribed on buspirone as outpatient, has not started the medicine yet, daughter reports that teachers' aide is okay with her starting it. Per their home prescription she is to do 5 mg daily for 5 days, then increase to 5 mg twice
daily.
Start buspirone
As needed Xanax for panic attacks while here inpatient, she took 1 but it did not help, will discontinue
DVT PPx
Lovenox
Anticipated Discharge: 24 - 48 hours
Subjective/Interval History
-
Date of Service: March 16, 2025
breathing stable, still midlly short of breath
Objective Data
-
Vital Signs:
Vital Signs
Temp Pulse Resp BP Pulse Ox
97.6 F 86 16 148/75 98
03/16/25 07:00 03/16/25 08:44 03/16/25 08:44 03/16/25 08:24 03/16/25 11:20
I&O
03/15/25 03/16/25 03/17/25
06:59 06:59 06:59
Intake Total 660 / 660 900 / 900
Balance 660 / 660 900 / 900
Review of Systems
-
History Source: Patient
All other systems: Reviewed and negative
Physical Exam
-
General: No Apparent Distress
HEENT: PERRLA
Respiratory: Decreased Breath Sounds; Negative Wheezes
Cardiac: Regular Rhythm and S1/S2
GI: Soft and Nontender
Musculoskeletal: No Edema
Skin: Warm and Dry; Negative Rash
Neuro: AO x 3
Psych: Calm
Data Reviewed
-
Diagnostic Radiology: Report Reviewed by me
Labs: Labs Reviewed by me
[2025-03-16 15:00] VITALS: BP 158/72
--- NOTE | 2025-03-16 15:09 | W.DCSUMMARY ---
Discharge Summary
Discharge Data
Date of Admission: 03/12/25
Date of Discharge: 03/17/25
-
Pending Results: No
Hospital Course
Discharging Physician : Dr. Johnna Gaspar
Disposition : Home with Home Health
Primary care physician : Dr. Rico Flannery
Principal Discharge diagnosis : Acute COPD Exacerbation, severe COPD
Hospital Course :
Ms. Ana Davison is a 80 yo woman with hx severe COPD (FEV1 20%, FEV1/FVC 29) presents to the ER with shortness of breath. Triage vitals significant for hypertension, SpO2 97% on home 3L. CXR without finding of acute disease. She was admitted
to medicine with pulmonary consulting. She was given steroids and 3 days of Azithromycin 500mg. She had mild improvement, although there is concern that worsening symptoms are progression of end stage COPD. BiPAP qhs recommended and set up at
discharge. She is discharged on a steroid taper and will follow up closely with Pulmonary.
I spoke to patient's daughter, Pascale, about goals of care prior to discharge. She is interested in palliative care which will be arranged as outpatient.
Patient was hypertensive during hospital stay. Pascale given instructions on monitoring blood pressures 90 minutes after morning meds at home (once a day or if patient feels unwell) and reporting results to her outpatient providers.
Time spent on discharge was 32 minutes.
Important imaging findings :
CXR 03/12/25
IMPRESSION:
No acute disease of the chest.
Probable T12 mild compression fracture.
Findings suggesting severe COPD.
Severe atherosclerotic vascular disease.
Procedure findings :
Discharge Plan
-
Patient Disposition: Home (Routine Discharge)
Discharge Diagnosis/Procedures: COPD exacerbation
Diet: As tolerated
Activity: With assistance and As tolerated
Referrals:
Rico Flannery DO [Family Provider, [facility]] - in less than 1 week
Gilberto Nix MD [Active, Pulmonary Medicine] - in two to four weeks
Referral Note: If patient wants for local pulmonary follow-up
Additional Discharge Medication Instructions: follow up with Dr. Flannery, Dr. Rojo and Dr. Infante as outpatient
Start Benazepril tomorrow morning; OK to give this evening if systolic blood pressure is over 160
Use BiPAP in evenings as directed.
Spirometry was completed in the hospital showing FEV1 20% (0.34L), FVC 55%, FEV1/FVC 29; indicative of severe obstructive airway disease with possibly concomitant restriction with decreased FVC (PFT sheet printed out to be included with these
instructions)
Complete prednisone taper as prescribed
Prescriptions:
New
prednisone 10 mg tablet
10 mg PO DIRECTED Qty: 12 0RF
Rx Instructions:
Take 30mg (3 tabs) x 1 more day then 20mg (2 tabs) x 3 days then 10mg (1 tab) x 3 days
Continued
budesonide 0.5 mg/2 mL Suspension For Nebulization
0.5 mg INHALATION BID
benazepril 20 mg Tablet
20 mg PO BID
ipratropium-albuterol 0.5 mg-3 mg(2.5 mg base)/3 mL Solution For Nebulization
3 ml INHALATION QID PRN (Reason: shortness of breath)
arformoterol 15 mcg/2 mL Solution For Nebulization
2 ml INHALATION BID
Yupelri 175 mcg/3 mL Solution For Nebulization
175 mcg INHALATION DAILY
Ohtuvayre 3 mg/2.5 mL Suspension For Nebulization
2.5 ml INHALATION QAM AND QPM
nebivolol [Bystolic] 10 mg Tablet
10 mg PO BID AT 0800,1700
Discharge Orders:
Discharge Patient (As Directed); Ordered 03/17/25
Ordered By: Johnna Gaspar
Discharge Date and Time
Discharge Date/Time: 03/17/25 13:37
Print Language: GERMAN
[2025-03-16] MEDS: LOVENOX 40 MG SC (17:28)
[2025-03-16 20:03] VITALS: BP 179/86
[2025-03-16 23:38] VITALS: BP 149/80; PULSE 2; PULSE 73
[2025-03-17 02:40] VITALS: PULSE 2
[2025-03-17 07:00] VITALS: BP 178/89
[2025-03-17] MEDS: DELTASONE 30 MG PO (08:01)
[2025-03-17] MEDS: ZESTRIL 20 MG PO (08:01)
[2025-03-17] MEDS: BUSPAR 5 MG PO (08:01)
[2025-03-17] MEDS: LOPRESSOR 50 MG PO (08:02)
--- NOTE | 2025-03-17 09:43 | W.PN.PUL3 ---
Today's Communication / Plan
-
Doing well, no new complaints
Prednisone taper
Ready to go home, d/c planning per team
Encouraged OP FU at [facility] in 4-6 weeks
Assessment
-
80-year-old former smoking female with underlying COPD, hypertension, macular degeneration presented to the emergency room with increasing shortness of breath and felt to have COPD exacerbation-pulmonary consulted for shortness of breath/COPD
exacerbation 03/13/2025.
Acute COPD exacerbation
Chronic hypoxic and hypercapnic respiratory failure, baseline on 3 L O2
Chronic compensated hypercapnia ()
Mild [id number]-okfldtaxdc 11.4
Mild hyperglycemia
Pulmonary cachexia
Conditions present prior to admission:
COPD on chronic 3 L of oxygen and nebulizers-followed Dr. Infante at [facility]-on protocol/BiPAP study.
Hypertension.
Macular degeneration.
Plan
Respiratory decompensation likely due to a mild COPD exacerbation without clear infectious prodrome
Most of her exertional dyspnea is due to end stage severe COPD.
Patient follows up with Dr. Infante at [facility], at baseline has been on a formoterol nebulizer along with budesonide, DuoNeb, Ohtuvayre and Yupleri.
Essentially maximum medical management.
In view of chronic compensated hypercapnia, patient might benefit from nightly BiPAP initiation.
Discussed with patient and her daughter, updated them regarding fairly advanced underlying obstructive disease with cachexia which I suspect is pulmonary cachexia due to advanced COPD.
Encouraged IS
Spirometry 03/15, FEV1 20% (0.34L), FVC 55%, FEV1/FVC 29. Severe obstructive airway disease with possibly concomitant restriction with decreased FVC.
Supplemental oxygen-on baseline-patient on 3 L at home
Aspiration precautions
Nebulizers
Lowered prednisone to 30 mg daily
No infiltrates noted
Add 3 days of Azithromycin 500 mg nightly
Patient reports feeling better with use of BiPAP at night
Monitor blood sugar
Insulin supplementation as needed
DVT prophylaxis-on Lovenox
Nutrition
Early mobilization
Outpatient follow-up with Dr. Infante and if she wishes locally as well-Will leave information and discharge paperwork
Discharge planning per team
Diagnostic data:
Chest x-ray 03/12/2025-NAD, COPD changes, T12 mild compression fracture
Total time spent on this consultation/encounter __40__ minutes which includes review of history, physical exam, medications, laboratory data, personal review of imaging, extensive review of outpatient records, discussion with care team and
respiratory therapy.
Subjective Data
-
Date of Service:
Date of Service: March 17, 2025
Chief Complaint: Pulmonary Follow Up
Subjective:
Doing well, no new complaints
Ready to go home
Objective Data
Data Reviewed
Vital Signs / I&O / Oxygen:
Vital Signs
Temp Pulse Resp BP Pulse Ox
97.7 F 81 18 178/89 99
03/17/25 07:00 03/17/25 08:01 03/17/25 07:00 03/17/25 08:01 03/17/25 08:00
Intake and Output
03/16/25 03/17/25 03/18/25
06:59 06:59 06:59
Intake Total 900 / 900 1180 / 1180
Balance 900 / 900 1180 / 1180
SaO2 99
Nasal Cannula flow liters per 3
minute
Physical Exam
General: Comfortable and Other (Cachectic appearing)
HEENT: Normocephalic, Anicteric and Moist Mucous Membranes
Cardiovascular: S1-S2 and Regular Rhythm
Respiratory: Clear, Non-Labored Respirations and Other (Expiration prolonged, no wheezing )
GI: Soft, Non Distended and Non Tender
Neurology: Awake, Alert, Oriented and No Motor Deficits
Skin: Warm and Dry
Labs/Micro/Reports
Lab Data
03/13/25 07:26
03/13/25 07:26
--- NOTE | 2025-03-17 10:11 | CM ---
Addendum entered by Halie Girard 03/17/25 12:17:
Pt is discharged to home with oxygen via n/c
Daughter will pick patient up to transport home
Correction - pt has referral in for [facility] NOT [facility]

Addendum entered by Halie Girard 03/17/25 12:13:
Referral placed for [facility] palliative care. Information given to the dtr- left on her voice mail at home. Pt is not to be told about this consult
Addendum entered by Halie Girard 03/17/25 10:23:
[employer]

Original Note:
Met with pt bedside. Dtr called and requested that the pt bring home the BiPap mask that she is using in the hospital. Message relayed to patient. Possible dc today to home with O2 @ 3 LPM n/c and [facility].
Nurse stated pt's BP was in the 170 range this morning. Ongoing monitoring of BP
Plan: Discharge home with O2 and [facility].
[2025-03-17 11:00] VITALS: BP 148/69
--- NOTE | 2025-03-17 11:02 | W.PN.HOSP.TC ---
Addendum entered and electronically signed by Johnna Gaspar MD 03/17/25 11:40:
updated daughter. we discussed severe COPD and qualification for hospice versus palliative care. Daughter interested in palliative care - gave information to team and placed CM consult. daughter prefers these discussions go through her.
Original Note:
Today's Communication/Plan
-
Ok for DC today
Assessment / Plan
Assessment / Plan
80F with COPD on chronic home O2, HTN, P/W dyspnea, found to have worsening hypoxia with ambulation.
COPD progression
Appears to have progressive worsening of her COPD
In ED apparently found to have hypoxia when she ambulated
Continue home O2 3L, checked ambulatory pulse ox, 88% on RA at rest, 93% ambulating with 3 L
Consulted pulmonology, patient is on max therapy; recommending BiPAP qhs. CM consult for home BiPAP, set up for DC today
continue prednisone taper
Continue nebs
Outpatient will be evaluated for advanced therapies, will follow-up with local pulm
plan for discharge tomorrow once BiPAP set up
HTN
BP controlled, continue ACEi and BB
Anxiety
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 Per their home prescription she is to do 5 mg daily for 5 days, then increase to 5 mg twice
daily.
Start buspirone
As needed Xanax for panic attacks while here inpatient, she took 1 but it did not help, will discontinue
DVT PPx
Lovenox
Anticipated Discharge: Today
Subjective/Interval History
-
Date of Service: March 17, 2025
feeling okay, read for discharge
Objective Data
-
Vital Signs:
Vital Signs
Temp Pulse Resp BP Pulse Ox
97.7 F 81 18 178/89 99
03/17/25 07:00 11/25/25 08:01 03/17/25 07:00 03/17/25 08:01 03/17/25 10:21
I&O
03/16/25 03/17/25 03/18/25
06:59 06:59 06:59
Intake Total 900 / 900 1180 / 1180
Balance 900 / 900 1180 / 1180
Review of Systems
-
History Source: Patient
All other systems: Reviewed and negative
Physical Exam
-
General: No Apparent Distress
HEENT: PERRLA
Respiratory: Decreased Breath Sounds; Negative Wheezes
Cardiac: Regular Rhythm and S1/S2
GI: Soft and Nontender
Musculoskeletal: No Edema
Skin: Warm and Dry; Negative Rash
Neuro: AO x 3
Psych: Calm
Data Reviewed
-
Diagnostic Radiology: Report Reviewed by me
Labs: Labs Reviewed by me
--- NOTE | 2025-03-17 11:39 | W.DS.TRANS ---
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
-
Discharge Instructions:
Discharge Diagnosis/Procedures COPD exacerbation
Diet As tolerated
Activity With assistance,As tolerated
Instructions:
Stand-Alone Forms:
Changes to Home Medications: Yes
Discharge Medications:
DC Medications w/original date entered in [employer]
arformoterol 15 mcg/2 mL solution for nebulization 2 ml inhalation BID copd 03/12/25
benazepril 20 mg tablet 20 mg PO BID Blood Pressure 03/12/25
budesonide 0.5 mg/2 mL suspension for nebulization 0.5 mg inhalation BID Lung/Breathing Issues 03/12/25
ensifentrine 3 mg/2.5 mL suspension for nebulization (Ohtuvayre) 2.5 ml inhalation QAM AND QPM COPD 03/12/25
ipratropium 0.5 mg-albuterol 3 mg (2.5 mg base)/3 mL nebulization soln 3 ml inhalation QID PRN shortness of breath 03/12/25
nebivolol 10 mg tablet (Bystolic) 10 mg PO BID AT 0800,1700 Blood Pressure 03/12/25
revefenacin 175 mcg/3 mL solution for nebulization (Yupelri) 175 mcg inhalation DAILY COPD 03/12/25
prednisone 10 mg tablet 10 mg PO DIRECTED #12 tabs 03/16/25
Home Medication Changes
addition of Prednisone taper
Pending Results: No
== END 2025-03-17 13:37 | disposition home health service (06) | DRG 190 ==
LOC: 4 EAST ACU 19:40
PROVIDERS: Nurse Practitioner Family; ADMITTING PHYSICIAN Hospitalist; ATTENDING PHYSICIAN Student in an Organized Health Care Education/Training Program; CONSULT PHYSICIAN Internal Medicine; EMERGENCY PHYSICIAN Student in an Organized Health Care Education/Training Program; FAMILY PHYSICIAN Family Medicine
PROC: 3E0234Z Introduction of Serum, Toxoid and Vaccine into Muscle, Percutaneous Approach (ICD-10-PCS; 2025-03-12)
DX: J44.1 Chronic obstructive pulmonary disease with (acute) exacerbation (principal); J96.21 Acute and chronic respiratory failure with hypoxia; J96.22 Acute and chronic respiratory failure with hypercapnia; R64 Cachexia; Z68.1 Body mass index [BMI] 19.9 or less, adult; I10 Essential (primary) hypertension; H35.30 Unspecified macular degeneration; F41.9 Anxiety disorder, unspecified; D64.9 Anemia, unspecified; R73.9 Hyperglycemia, unspecified; Z23 Encounter for immunization; Z79.899 Other long term (current) drug therapy; Z87.891 Personal history of nicotine dependence; Z99.81 Dependence on supplemental oxygen
CPT/HCPCS: 71046; 80048; 80053; 82805; 83880; 84484; 85025; 93005; 94060; 94640; 94660; 96374; 99285